=== PATIENT | female | born 1970 | race Caucasian/White ===

== ENCOUNTER 2016-11-20 12:52 | Emergency (ER) | payer MEDICARE, MEDICAID ==
[2016-11-20 13:28] VITALS: BP 152/93
== END 2016-11-20 13:35 | disposition left against medical advice (07) ==
LOC: ED 12:52
DX: R05 Cough (principal)

== ENCOUNTER 2017-05-22 14:21 | Emergency (ER) | payer MEDICARE, MEDICAID ==
[2017-05-22 14:58] VITALS: BP 122/82
== END 2017-05-22 16:02 | disposition left against medical advice (07) ==
LOC: UCEAST 14:21
DX: S99.929A Unspecified injury of unspecified foot, initial encounter (principal); X58.XXXA Exposure to other specified factors, initial encounter; Y93.9 Activity, unspecified; Y92.9 Unspecified place or not applicable; Z53.21 Procedure and treatment not carried out due to patient leaving prior to being seen by health care provider

== ENCOUNTER → 2017-07-10 10:40 | Emergency (ER) | payer MEDICARE, MEDICAID ==
[~2017-07-10 10:40] MED LIST: Gabapentin CAP(*) 300 MG PO ONE; Magnesium Sulfate 2 GM IV* 2 GM/50 ML BAG IVPB ONE; NS 0.9% 1000 ML* 1,000 ML IV ONE; Ondansetron INJ* 2 MG/ML VIAL IV ONE; cloNIDine TAB* 0.1 MG PO ONE; clonazePAM TAB(*) 0.5 MG PO ONE
--- NOTE | 2017-07-10 11:41 | RAD ---
Indication: Weakness. LEFT side chest pain. Comparison: September 18, 2015 Technique: Upright AP 1130 hours Report: No focal pulmonary lesion, compelling alveolar consolidation, pleural effusion, pneumothorax. The heart, pulmonary vasculature, and mediastinal contours are unremarkable. Healed fractures of the bilateral eighth ribs. No acute rib fracture or suspicious focal osseous lesion evident. IMPRESSION: No evidence for acute intrathoracic disease.
[2017-07-10 11:47] LABS: Hematocrit 46 % (35-47); Mean Corpuscular HGB Conc 35 g/dl (31-36); Mean Corpuscular Hemoglobin 31 pg (27-31); Mean Corpuscular Volume 88 fL (80-97); Mean Platelet Volume 7 um3 (7.4-10.4); Red Blood Count 5.21 10^6/ul (4.0-5.4); Red Cell Distribution Width 12 % (10.5-15)
[2017-07-10 12:00] LABS: Albumin 4.4 g/dL (3.2-5.2); Calcium 10.2 mg/dL (8.6-10.3); Globulin 3.1 g/dL (2-4); Magnesium 1.8 mg/dL (1.9-2.7); Potassium 3.9 mmol/L (3.5-5.0); Total Bilirubin 0.9 mg/dL (0.2-1.0); Total Protein 7.5 g/dL (6.4-8.9)
[2017-07-10 12:21] LABS: BUN/Creatinine Ratio 9.2 (8-20); EGFR African American 46.9 (>60); EGFR Non-African American 36.5 (>60)
[2017-07-10 12:30] LABS: TSH (Thyroid Stimulating Horm) 0.88 mcIU/mL (0.34-5.60)
[2017-07-10 13:09] LABS: Urine Bilirubin Negative (Negative); Urine Glucose Negative (Negative); Urine Nitrite Negative (Negative)
--- NOTE | 2017-07-10 14:04 | RAD ---
INDICATION: Feeling tired. Body is tingling COMPARISON: Lateral chest x-ray September 18, 2015; CTA chest August 20, 2017 TECHNIQUE: Noncontrast axial source images was performed from the thoracic inlet to the level the hemidiaphragms. Coronal and and sagittal reformatted images were generated. FINDINGS: Vertebrae: There is no fracture or acute focal bony lesion. There is minor mid thoracic spurring, unchanged. Alignment: There is minor kyphosis, unchanged. Central Canal: There are no significant CT abnormalities of the central canal or foramina. MR imaging is a more sensitive method to evaluate the canal and foramina. Intervertebral disc spaces: The disc spaces are maintained. Soft tissues: There are no paravertebral soft tissue abnormalities. The right thyroid lobe appears enlarged and mildly heterogeneous. Similar findings were present in 2006 IMPRESSION: NO ACUTE CT FINDINGS.
--- NOTE | 2017-07-10 14:08 | RAD ---
INDICATION: LEFT lower quadrant pain. Post cholecystectomy. COMPARISON: August 20, [address] TECHNIQUE: Multidetector CT images were obtained from the lung bases to the ischial tuberosities. Oral contrast administered. Assessment of the visceral limited without IV contrast. REPORT: Unremarkable visualized inferior thorax. Unremarkable unenhanced liver. Post cholecystectomy. Negative for biliary dilatation. Unremarkable unenhanced pancreas and spleen with small splenule at the splenic hilum. Small medially projecting diverticulum from the junction of the second segment of the duodenum without suggestion of acute inflammatory change. No additional abnormality of the upper GI, small bowel, or infra cecal appendix. Mild diverticulosis of the sigmoid colon without findings of diverticulitis. Negative for ascites, free air, hernias. Normal adrenal glands. Unremarkable unenhanced kidneys. No conspicuous stones or hydronephrosis. Unremarkable ureters and distended urinary bladder as well as the RIGHT deviated anteverted uterus and adnexal regions. Negative for lymphadenopathy. Normal diameter abdominal aorta and iliac arteries with mild calcific plaque. Physiologic distention of the IVC. Negative for suspicious osseous lesions. Mild subchondral sclerosis and cystic change at the weightbearing portion of the LEFT greater than RIGHT hips secondary to osteoarthritis. IMPRESSION: 1. Normal appendix documented. 2. Mild colonic diverticulosis without findings of acute diverticulitis. 3. No acute abdominal pelvic pathologic process evident
[2017-07-10 16:16] VITALS: BP 146/85
--- NOTE | 2017-07-10 17:01 | ED ---
Leighton Paul Alfonso, scribed for Sandra Gaming MD on 07/10/17 at 1113 . Complex/Multi-Sys Presentation - HPI Summary HPI Summary: This patient is a 47 year old F presenting to [facility] accompanied by mother with a chief complaint of diffuse body tingling worse since 3 weeks ago. She reports having these symptoms for years. The patient rates the pain 8/10 in severity. Symptoms aggravated by nothing. Symptoms alleviated by nothing. Patient reports tiredness, nausea, constipation, and left sided abdominal pain (lasting years and worse since weeks ago). Patient denies vomiting, and dysuria. She is not on dialysis. PMHx of HTN, neuropathy, bipolar disorder, and kidney disease ( secondary to [place]) for which she sees Dr. Nunes (nephrology). Her PCP is Dr. Jarrett. - History Of Current Complaint Chief Complaint: EDGeneral Time Seen by Provider: 07/10/17 11:03 Hx Obtained From: Patient Onset/Duration: Gradual Onset, Worse Since - 3 weeks Timing: Constant Severity Currently: Moderate Severity Initially: Moderate Location: Pain At: - diffuse body tingling and left sided abd pain. Aggravating Factor(s): Nothing Alleviating Factor(s): Nothing Associated Signs And Symptoms: Positive: Other - Patient reports tiredness, nausea, constipation, and left sided abdominal pain (lasting years and worse since weeks ago). Patient denies vomiting, and dysuria. - Allergies/Home Medications Allergies/Adverse Reactions: Allergies Allergy/AdvReac Type Severity Reaction Status Date / Time No Known Allergies Allergy Verified 07/10/17 10:55 PMH/Surg Hx/FS Hx/Imm Hx Endocrine/Hematology History: Reports: Hx Thyroid Disease Denies: Hx Diabetes Cardiovascular History: Reports: Hx Hypertension Denies: Other Cardiovascular Problems/Disorders Respiratory History: Denies: Hx Asthma, Hx Chronic Obstructive Pulmonary Disease (COPD), Other Respiratory Problems/Disorders GI History: Denies: Hx Ulcer, Other GI Disorders History: Reports: Other Problems/Disorders - Kidney disease. Sensory History: Denies: Hx Contacts or Glasses, Hx Hearing Aid Opthamlomology History: Denies: Hx Contacts or Glasses Neurological History: Reports: Hx Peripheral Neuropathy Denies: Other Neuro Impairments/Disorders Psychiatric History: Reports: Hx Anxiety - ON MEDS, Hx Depression - ON MEDS, Hx Bipolar Disorder - Surgical History Surgery Procedure, Year, and Place: , [facility] [place] Hx Anesthesia Reactions: No Infectious Disease History: Denies: Hx Hepatitis, Hx Human Immunodeficiency Virus (HIV), Traveled Outside the [place] in Last 30 Days - Family History Known Family History: Negative: Cardiac Disease, Diabetes - Social History Lives: Alone Alcohol Use: None Substance Use Type: Reports: None Smoking Status (MU): Light Every Day Tobacco Smoker Type: Cigarettes Amount Used/How Often: 2 cig/day Have You Smoked in the Last Year: Yes Review of Systems Positive: Abdominal Pain - left sided, Nausea, Other - Constipation. Negative: Vomiting Negative: dysuria Neurological: Other - Diffuse body tingling, and tiredness All Other Systems Reviewed And Are Negative: Yes Physical Exam Triage Information Reviewed: Yes Vital Signs On Initial Exam: Initial Vitals Temp Pulse Resp BP Pulse Ox 98 F 68 16 150/103 100 07/10/17 10:50 07/10/17 10:50 07/10/17 10:50 07/10/17 10:50 07/10/17 10:50 Vital Signs Reviewed: Yes Appearance: Positive: Well-Appearing, No Pain Distress Skin: Positive: Skin Color Reflects Adequate Perfusion, Dry Eyes: Positive: EOMI, ERON ENT: Positive: Pharynx normal, TMs normal Neck: Positive: Supple, Nontender Respiratory/Lung Sounds: Positive: Clear to Auscultation, Breath Sounds Present. Negative: Rales, Rhonchi, Wheezes Cardiovascular: Positive: RRR, Other - No gallop. Negative: Murmur, Rub Abdomen Description: Positive: Soft, Other: - LLQ tenderness. No rebound.. Negative: Distended, Guarding Bowel Sounds: Positive: Present Musculoskeletal: Positive: Strength/ROM Intact, Other. Negative: Edema Left, Edema Right Neurological: Positive: Sensory/Motor Intact, Alert, Oriented to Person Place, Time, CN Intact II-III, Other - DTR normal. Sensation in both legs. Sensation decreased in legs bilaterally which is her baseline. Psychiatric: Positive: Affect/Mood Appropriate Diagnostics - Vital Signs Vital Signs Temp Pulse Resp BP Pulse Ox 07/10/17 10:50 98 F 68 16 150/103 100 - Laboratory Lab Results: Lab Results 07/10/17 07/10/17 07/10/17 Range/Units 11:30 11:30 11:30 WBC 6.0 (3.5-10.8) 10^3/ul RBC 5.21 (4.0-5.4) 10^6/ul Hgb 16.0 (12.0-16.0) g/dl Hct 46 (35-47) % MCV 88 (80-97) fL MCH 31 (27-31) pg MCHC 35 (31-36) g/dl RDW 12 (10.5-15) % Plt Count 222 (150-450) 10^3/ul MPV 7 L (7.4-10.4) um3 Neut % (Auto) 58.8 (38-83) % Lymph % (Auto) 32.0 (25-47) % [place] % (Auto) 6.7 (1-9) % Eos % (Auto) 2.0 (0-6) % Baso % (Auto) 0.5 (0-2) % Absolute Neuts (auto) 3.5 (1.5-7.7) 10^3/ul Absolute Lymphs (auto) 1.9 (1.0-4.8) 10^3/ul Absolute Monos (auto) 0.4 (0-0.8) 10^3/ul Absolute Eos (auto) 0.1 (0-0.6) 10^3/ul Absolute Basos (auto) 0 (0-0.2) 10^3/ul Absolute Nucleated RBC 0.01 10^3/ul Nucleated RBC % 0.1 Sodium 138 (133-145) mmol/L Potassium 3.9 (3.5-5.0) mmol/L Chloride 102 (101-111) mmol/L Carbon Dioxide 29 (22-32) mmol/L Anion Gap 7 (2-11) mmol/L BUN 14 (6-24) mg/dL Creatinine 1.52 H (0.51-0.95) mg/dL Est GFR ( Amer) 46.9 (>60) Est GFR (Non-Af Amer) 36.5 (>60) BUN/Creatinine Ratio 9.2 (8-20) Glucose 99 (70-100) mg/dL Lactic Acid 1.0 (0.5-2.0) mmol/L Calcium 10.2 (8.6-10.3) mg/dL Magnesium 1.8 L (1.9-2.7) mg/dL Total Bilirubin 0.90 (0.2-1.0) mg/dL AST 18 (13-39) U/L ALT 23 (7-52) U/L Alkaline Phosphatase 64 (34-104) U/L Total Creatine Kinase 72 (10-223) U/L Troponin I 0.00 (<0.04) ng/mL Total Protein 7.5 (6.4-8.9) g/dL Albumin 4.4 (3.2-5.2) g/dL Globulin 3.1 (2-4) g/dL Albumin/Globulin Ratio 1.4 (1-3) TSH 0.88 (0.34-5.60) mcIU/mL Urine Color Urine Appearance Urine pH (5-9) Ur Specific [place] (1.010-1.030) Urine Protein (Negative) Urine Ketones (Negative) Urine Blood (Negative) Urine Nitrate (Negative) Urine Bilirubin (Negative) Urine Urobilinogen (Negative) Ur Leukocyte Esterase (Negative) Urine Glucose (Negative) 07/10/17 Range/Units 12:55 WBC (3.5-10.8) 10^3/ul RBC (4.0-5.4) 10^6/ul Hgb (12.0-16.0) g/dl Hct (35-47) % MCV (80-97) fL MCH (27-31) pg MCHC (31-36) g/dl RDW (10.5-15) % Plt Count (150-450) 10^3/ul MPV (7.4-10.4) um3 Neut % (Auto) (38-83) % Lymph % (Auto) (25-47) % [place] % (Auto) (1-9) % Eos % (Auto) (0-6) % Baso % (Auto) (0-2) % Absolute Neuts (auto) (1.5-7.7) 10^3/ul Absolute Lymphs (auto) (1.0-4.8) 10^3/ul Absolute Monos (auto) (0-0.8) 10^3/ul Absolute Eos (auto) (0-0.6) 10^3/ul Absolute Basos (auto) (0-0.2) 10^3/ul Absolute Nucleated RBC 10^3/ul Nucleated RBC % Sodium (133-145) mmol/L Potassium (3.5-5.0) mmol/L Chloride (101-111) mmol/L Carbon Dioxide (22-32) mmol/L Anion Gap (2-11) mmol/L BUN (6-24) mg/dL Creatinine (0.51-0.95) mg/dL Est GFR ( Amer) (>60) Est GFR (Non-Af Amer) (>60) BUN/Creatinine Ratio (8-20) Glucose (70-100) mg/dL Lactic Acid (0.5-2.0) mmol/L Calcium (8.6-10.3) mg/dL Magnesium (1.9-2.7) mg/dL Total Bilirubin (0.2-1.0) mg/dL AST (13-39) U/L ALT (7-52) U/L Alkaline Phosphatase (34-104) U/L Total Creatine Kinase (10-223) U/L Troponin I (<0.04) ng/mL Total Protein (6.4-8.9) g/dL Albumin (3.2-5.2) g/dL Globulin (2-4) g/dL Albumin/Globulin Ratio (1-3) TSH (0.34-5.60) mcIU/mL Urine Color Straw Urine Appearance Clear Urine pH 8.0 (5-9) Ur Specific [place] 1.002 L (1.010-1.030) Urine Protein Negative (Negative) Urine Ketones Negative (Negative) Urine Blood Negative (Negative) Urine Nitrate Negative (Negative) Urine Bilirubin Negative (Negative) Urine Urobilinogen Negative (Negative) Ur Leukocyte Esterase Negative (Negative) Urine Glucose Negative (Negative) Result Diagrams: 07/10/17 11:30 07/10/17 11:30 Lab Statement: Any lab studies that have been ordered have been reviewed, and results considered in the medical decision making process. - Radiology CXR Radiology Interpretation Completed By: Radiologist - No evidence for acute intrathoracic disease. ED physician has reviewed this radiology report and agrees. - CT T-Spine CT Interpretation Completed By: Radiologist - NO ACUTE CT FINDINGS. ED physician has reviewed this radiology report and agrees. A/P CT Interpretation Completed By: Radiologist - 1. Normal appendix documented. 2. Mild colonic diverticulosis without findings of acute diverticulitis. 3. No acute abdominal pelvic pathologic process evident. ED physician has reviewed this radiology report and agrees. - EKG 1132 Cardiac Rate: NL - BPM 64 EKG Rhythm: Sinus Rhythm EKG Interpretation: RBBB EKG Comparison: No Significant Change - 08/20/07 RBBB present. Complex Multi-Symp Course/Dx Course Of Treatment: 47 yo female with multiple complaints including long standing abd pain and tingling to her body. her ct did show diverticulosis and she did on exam have llq so pt was started on abx in addition pt described her gabapentin as not working and so she was to titrate slowly up from 900 mg a day to 1800- this was discussed at length with the patient - Diagnoses Provider Diagnoses: Diverticulitis, Neuropathy - Physician Notifications Discussed Care Of Patient With: Vikram Nunes Time Discussed With Above Provider: 15:42 Instructed by Provider To: Other - Consulted Dr. Nunes (automobile repossessor) regarding the patient's condition. Discharge - Discharge Plan Condition: Stable Disposition: HOME Prescriptions: Ciprofloxacin TAB* [Cipro 500 MG TAB*] 500 mg PO BID #14 tab Gabapentin CAP(*) [Neurontin 300 CAP(*)] 600 mg PO TID #30 cap Metronidazole [Flagyl 500 MG TAB] 500 mg PO QID #28 tab Patient Education Materials: Diverticulitis (ED), Peripheral Neuropathy (ED) Referrals: Chris Jarrett MD [Primary Care Provider] - 3 Days The documentation as recorded by the Leighton trinidad Alfonso accurately reflects the service I personally performed and the decisions made by me, Sandra Gaming MD.
== END | disposition home or self-care (01) ==
LOC: ED 10:40
DX: K57.92 Diverticulitis of intestine, part unspecified, without perforation or abscess without bleeding (principal); G62.9 Polyneuropathy, unspecified; R10.9 Unspecified abdominal pain; K59.00 Constipation, unspecified; R11.0 Nausea; F17.210 Nicotine dependence, cigarettes, uncomplicated
CPT/HCPCS: 36415; 71010; 72128; 74176; 80053; 81003; 82550; 83605; 83735; 84443; 84484; 85025; 93005; 96374; 99283; A9270-GY; J2405; J3475

== ENCOUNTER 2018-10-31 06:15 | Emergency (ER) | payer MEDICARE, MEDICAID ==
[2018-10-31] MEDS ORDERED: LORazepam TAB(*) 1 MG PO ONE (07:01)
--- OUTSIDE RECORDS SUMMARY | 2018-10-31 07:03 | XMS REPORT | Continuity of Care Document ---
:1970 External Reference #:[id number] Author Name Shasta Weaver Care Team Providers Name Role Phone Chris Jarrett MD Primary Care Physician Unavailable Payers Type Date Identification Numbers Payment Provider Subscriber Policy Number: [id number] Medicare Laurence Torres PayID: [id number] [address] [place] [address] Policy Number: [id number] Medicaid Laurence Torres Group Name: 1 1 [address] PayID: [id number] [place] [address] Policy Number: [id number] Cont: [facility] Laurence Torres PayID: [id number] Attn Ana Mark [address] [place] [address] Advance Directives Description No Information Available Problems Date Description Provider Status Onset: 11/30/2015 Idiopathic peripheral Tessa Kaba MD Active neuropathy Onset: 01/08/2016 Skin sensation disturbance Tessa Kaba MD Active Onset: 09/11/2017 Low back pain Miguel Peralta M.D. 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[employer] Family History Date Family Member(s) Problem(s) Comments General Cancer Father Arthritis Mother Arthritis Social History Type Date Description Comments Sex Unknown Marital Status Single Lives With Alone Occupation Currently Working Occupation [employer] Tobacco Use Start: Unknown Currently smokes 1-5 Cigarettes Daily Tobacco Use Start: Unknown End: Former Cigarette Smoker Unknown Smoking Status Reviewed: 10/25/18 Former Cigarette Smoker ETOH Use Denies alcohol use Recreational Drug Use Denies Drug Use Tobacco Use Start: Unknown End: Patient is a former Unknown smoker Exercise Type/Frequency Exercises regularly Active at work, at home during summer. Allergies, Adverse Reactions, Alerts Description No Known Drug Allergies Medications Medication Date Status Form Strength Qnty SIG Indications Ordering Provider Baclofen 10/25 Active Tablets 10mg 30tab take one G89.4 s tablet by Katherin, mouth per M.D. day as needed for muscle spasms - avoid driving Hydroxyzine HCL 06/18 Active Tablets 25mg 60tab take one F41.9 Zsofi s tablet by Stew, mouth 2x SHIPPING AND RECEIVING CLERK daily as needed Naltrexone HCL 03/09 Active Powder 15gm 4.5 mg compounded Katherin, in capsules M.D. by mouth every day Multivitamins Active Capsules 1 by mouth Unknown /0000 every day Ziprasidone HCL Active Capsules 80mg 1 po qpm Unknown / Klonopin Active Tablets 0.5mg 1 tab po Unknown / Qid as needed Levothyroxine Active Tablets 75mcg 1 tab po Unknown Sodium qam before breakfast except Thursday Trintellix Active Tablets 20mg daily Unknown / Amlodipine Active Tablets 10mg daily Mamie /0000 , BETH Dorado Bupropion HCL ER 06/18 Hx Tablets ER 150mg 1 by mouth Other (SR) 12HR every day Ordering - Provider 08/24 Gabapentin 06/18 Hx Tablets 600mg 1 by mouth G89.4 ofi three times Stew, - a day SHIPPING AND RECEIVING CLERK 10/25 Tizanidine HCL 02/09 Hx Tablets 2mg 60tab take 2 tabs G89.4 s in the Katherin, - morning and M.D. 08/24 2 tabs in the evening for a total of 4 daily tabs daily ongoing as needed for muscular spasms Tizanidine HCL 02/08 Hx Capsules 4mg 60cap Take one s capsule/tab Katherin, - let by M.DJose Manuel 02/09 mouth twice daily as needed for spasms (cancel the 2mg dose) Tizanidine HCL 02/02 Hx Tablets 2mg 30tab Take one s capsule/tab Katherin, - let by M.DJose Manuel 02/08 mouth twice daily as needed for spasms, avoid with driving Aspercreme 01/05 Hx Patches 4% 90uni apply daily R20.2 Vikram ts to help Katherin, - myofascial M.D. 08/24 pain from fms Lidoderm 12/25 Hx Patches 5% 30uni 1 apply to R20.2 ts affected Katherin, - area 12 M.D. 01/05 hours on, 12 hours off (has not started 01/04/18) Gabapentin 11/30 Hx Capsules 300mg 90cap 2 tabs in s the am, 4 MD Sendy - tabs in the 01/03 afternoon, and 2 tabs in the pm Duloxetine HCL Hx Caps DR 60mg 2 caps po Unknown /0000 Part qhs - 08/12 Topiramate Hx Tablets 50mg 1 by mouth Unknown /0000 twice a day - (currently 12/18 on hold) Buspirone HCL 00/ Hx Tablets 30mg 1 tab po Unknown /0000 bid - 08/12 Pantoprazole / Hx Tablets DR 40mg 1 tab po Unknown Sodium /0000 daily - 11/16 Omeprazole /[address] 20mg 1 tab po Unknown /0000 bid - 08/12 Clonidine HCL 00/00 Hx Tablets 0.1mg 1 tab po Unknown /0000 qam and 1 - tab po q 08/24 and 2 tabs qhs Bupropion HCL ER 00/00 Hx Tablets ER 150mg 1 tab po Unknown (SR) /0000 12HR daily - 11/29 Prempro 00/00 Hx Tablets 0.45-1.5m 1 by mouth Unknown /0000 g every day - 08/12 Chantix 00/00 Hx Tablets 1mg 1 by mouth Unknown /0000 twice a day - 12/19 Aspirin 00/00 Hx Chewtabs 81mg 1 by mouth Unknown /0000 every day - 08/12 Lyrica 00 Hx Capsules 200mg 1 cap po Unknown /0000 tid - 08/12 Doxycycline 00/00 Hx Tablets 100mg Wilder Mosleyate /0000 MD Mateo - 08/12 Bupropion HCL ER 00/00 Hx Tablets ER 300mg daily Unknown (XL) /0000 24HR - 06/18 Metronidazole 00/ Hx Cream 0.75% apply two Unknown /0000 times a day - as needed 01/03 for rash Esomeprazole Hx Capsules DR 40mg 1 by mouth Unknown Magnesium /0000 every day - 10/11 Hyoscyamine Hx Tablets Sub 0.125mg 1 Unknown Sulfate /0000 sublingual - every 15 10/11 min. when necessary for pain Phenergan Hx Solution 25mg/ml Unknown / - 12/25 Sucralfate Hx Tablets 1gm 1 tab by Unknown /0000 mouth 4x a - day 10/11 Tramadol HCL Hx Tablets 50mg 1-2 tablets Unknown / every 6 - hours as 10/11 Budesonide Hx Suspension 0.25mg/2M 1 unit Unknown /0000 L nebulizer - twice a day 10/11 Promethazine HCL Hx Tablets 25mg Unknown / - 01/03 Gabapentin Hx Tablets 600mg 360ta 1 tab by G62.9 Vikram /0000 bs mouth in [facility], - the M.D. 06/18 morning, tabs by mouth in the afternoon, 1 tab in the evening Tramadol HCL ER 00 Hx Tablets ER 100mg 1 tablet by Unknown (Biphasic) /0000 24HR mouth once - a day as 03/09 Cyclobenzaprine Hx Tablets 10mg 1 tablet by Unknown HCL /0000 mouth q8 - hours as 02/02 muscle spasms Tylenol With Hx Tablets 300-30mg 1 tablet by Unknown Codeine #3 /0000 mouth every - 8 hours as 03/09 cough Chantix Hx Tablets 1mg 1 by mouth Unknown Continuing Month / twice a day Leon - 08/24 Immunizations Description No Information Available Vital Signs Date Vital Result Comment 10/25/2018 9:18am Height 64 inches 5'4" Weight 156.25 lb Heart Rate 74 /min BP Systolic Sitting 128 mmHg BP Diastolic Sitting 80 mmHg Pain Level 7 O2 % BldC Oximetry 97 % BMI (Body Mass Index) 26.8 kg/m2 08/24/2018 8:36am Height 64 inches 5'4" Weight 158.38 lb Heart Rate 80 /min BP Systolic Sitting 122 mmHg BP Diastolic Sitting 80 mmHg Pain Level 2 O2 % BldC Oximetry 97 % BMI (Body Mass Index) 27.2 kg/m2 06/18/2018 9:16am Height 64 inches 5'4" Weight 155.12 lb Heart Rate 63 /min BP Systolic Sitting 114 mmHg BP Diastolic Sitting 80 mmHg O2 % BldC Oximetry 98 % BMI (Body Mass Index) 26.6 kg/m2 04/22/2018 9:53am Height 64 inches 5'4" Weight 161.00 lb Heart Rate 68 /min BP Systolic Sitting 112 mmHg BP Diastolic Sitting 70 mmHg Respiratory Rate 14 /min Pain Level 2 BMI (Body Mass Index) 27.6 kg/m2 03/09/2018 8:01am Height 64 inches 5'4" Weight 161.00 lb Heart Rate 60 /min BP Systolic Sitting 110 mmHg BP Diastolic Sitting 74 mmHg Respiratory Rate 14 /min Pain Level 5 BMI (Body Mass Index) 27.6 kg/m2 03/03/2018 9:08am Height 64 inches 5'4" Weight 159.00 lb Heart Rate 66 /min BP Systolic Sitting 116 mmHg Lue reg cuff BP Diastolic Sitting 76 mmHg Lue reg cuff Respiratory Rate 16 /min O2 % BldC Oximetry 97 % On Ra BMI (Body Mass Index) 27.3 kg/m2 01/20/2018 4:43pm Height 64 inches 5'4" Weight 160.00 lb pt. stated Heart Rate 61 /min BP Systolic Sitting 136 mmHg BP Diastolic Sitting 88 mmHg Respiratory Rate 14 /min Pain Level 5 BMI (Body Mass Index) 27.5 kg/m2 01/04/2018 8:42am Height 64 inches 5'4" Weight 163.00 lb per pt Heart Rate 56 /min BP Systolic Sitting 156 mmHg Rue reg cuff BP Diastolic Sitting 100 mmHg Rue reg cuff Respiratory Rate 16 /min O2 % BldC Oximetry 98 % On Ra BMI (Body Mass Index) 28.0 kg/m2 Neck Circumference in inches 15.5 12/25/2017 9:52am Height 64 inches 5'4" Weight 163.00 lb Heart Rate 60 /min BP Systolic Sitting 130 mmHg BP Diastolic Sitting 84 mmHg Respiratory Rate 14 /min Pain Level 7 BMI (Body Mass Index) 28.0 kg/m2 10/12/2017 9:47am Height 64 inches 5'4" Weight 162.00 lb Heart Rate 60 /min BP Systolic 118 mmHg BP Diastolic 80 mmHg Respiratory Rate 14 /min BMI (Body Mass Index) 27.8 kg/m2 09/11/2017 10:18am Height 64 inches 5'4" Weight 160.00 lb per pt Heart Rate 58 /min reg BP Systolic Sitting 118 mmHg Lue, reg cuff BP Diastolic Sitting 84 mmHg Lue, reg cuff Respiratory Rate 16 /min BMI (Body Mass Index) 27.5 kg/m2 01/08/2016 2:05pm Height 64 inches 5'4" Weight 202.00 lb Heart Rate 72 /min BP Systolic Sitting 130 mmHg BP Diastolic Sitting 72 mmHg Respiratory Rate 17 /min BMI (Body Mass Index) 34.7 kg/m2 11/30/2015 11:05am Height 64 inches 5'4" Weight 194.00 lb Heart Rate 68 /min BP Systolic Sitting 136 mmHg BP Diastolic Sitting 82 mmHg Respiratory Rate 16 /min BMI (Body Mass Index) 33.3 kg/m2 Results Test Date Facility Test Result H/L Range Note CBC Auto Diff 08/20/2018 [facility] White Blood 7.1 10^3/uL N 3.5-10.[address] [place] [address] [phone] Red Blood Count 4.57 10^6/uL N 4.00-5.40 Hemoglobin 14.0 g/dL N 12.0-16.0 Hematocrit 41 % N 35-47 Mean Corpuscular Volume 89 fL N 80-97 Mean Corpuscular Hemoglobin 31 pg N 27-31 Mean Corpuscular HGB Conc 34 g/dL N 31-36 Red Cell Distribution Width 12 % N 10.5-15 Platelet Count 211 10^3/uL N 150-450 Mean Platelet Volume 7.8 um3 N 7.4-10.4 Abs Neutrophils 4.7 10^3/uL N 1.5-7.7 Abs Lymphocytes 1.8 10^3/uL N 1.0-4.8 Abs Monocytes 0.5 10^3/uL N 0-0.8 Abs Eosinophils 0.1 10^3/uL N 0-0.6 Abs Basophils 0 10^3/uL N 0-0.2 Abs Nucleated RBC 0 10^3/uL Granulocyte % 65.6 % N 38-83 Lymphocyte % 25.8 % N 25-47 Monocyte % 6.7 % N 0-7 Eosinophil % 1.7 % N 0-6 Basophil % 0.2 % N 0-2 Nucleated Red Blood Cells % 0.3 Comp Metabolic Panel 08/20/2018 [facility] Sodium 142 mmol/L N 135-[address] [place] [address] [phone] Potassium 3.8 mmol/L N 3.5-5.0 Chloride 109 mmol/L N 101-111 Co2 Carbon Dioxide 26 mmol/L N 22-32 Anion Gap 7 mmol/L N 2-11 Glucose 84 mg/dL N 70-100 Blood Urea Nitrogen 18 mg/dL N 6-24 Creatinine 1.08 mg/dL High 0.51-0.95 BUN/Creatinine Ratio 16.7 N 8-20 Calcium 9.3 mg/dL N 8.6-10.3 Total Protein 6.6 g/dL N 6.4-8.9 Albumin 4.3 g/dL N 3.2-5.2 Globulin 2.3 g/dL N 2-4 Albumin/Globulin Ratio 1.9 N 1-3 Total Bilirubin 0.50 mg/dL N 0.2-1.0 Alkaline Phosphatase 87 U/L N 34-104 Alt 18 U/L N 7-52 Ast 21 U/L N 13-39 Egfr Non- 53.9 >60 Egfr 65.2 >60 1 Laboratory test 08/20/2018 [facility] Erythrocyte Sed 17 mm/Hr High 0-[address] [place] [address] [phone] C Reactive Protein 1.72 mg/L N <8.01 Creatine Kinase(CK) 198 U/L N 10-223 Laboratory test 04/13/2018 [facility] Erythrocyte Sed 14 mm/Hr N 0-14 [address] [place] [address] [phone] C Reactive Protein < 1.00 mg/L N < 5.00 3 Anca AB Ser If 12/25/2017 [facility] C-Anca Negative Negative [address] [place] [address] [phone] P-Anca Negative Negative 4 Laboratory test 12/25/2017 [facility] Angiotensin 60 U/L Abnormal 8 - 53 [address] [place] [address] Enzyme [phone] Rheumatoid Factor <15 IU/mL <15 6 C Reactive Protein 2.79 mg/L N < 5.00 7 Erythrocyte Sed Rate 27 mm/Hr High 0-14 Cyclic Citrullinated Pep Igg <15.6 U 8 Vitamin D, 1,25 Dihydroxy TNP () 9 TSH (Thyroid Stim Horm) 1.37 mcIU/mL N 0.34-5.60 Hla B27 12/25/2017 [facility] Hla B27 Positive [address] [place] [address] [phone] Hla B27 Interp See Comment 11 Celiac Hla 12/25/2017 [facility] [id number] SEE BELOW [address] [place] [address] [phone] [id number] SEE BELOW 13 Celiac Gene Pairs Present? No Celiac Gene Interpretation See Comment 14 Ssa/SSB Abs Igg 11/30/2015 [facility] SS-A/Ro Antibody <0.2 U N [address] [place] [address] [phone] SS-B/La Antibody <0.2 U N 16 Protein 11/30/2015 [facility] Total 6.8 g/dL N 6.3 - Electrophoresis [address] [facility] Protein(Pep) 7.9 [place] [address] [phone] Albumin 3.4 g/dL N 3.4-4.7 Alpha-1 Globulin 0.3 g/dL N 0.1-0.3 Alpha-2 Globulin 0.9 g/dL N 0.6-1.0 Beta Globulin 1.0 g/dL N 0.7-1.2 Gamma Globulin 1.1 g/dL N 0.6-1.6 Albumin/Globulin Ratio 1.01 N Impression See Comment N 17 Laboratory test 11/30/2015 [facility] Nakia (Antinuclear Negative N Negative finding [address] Antibodies) [place] [address] [phone] Erythrocyte Sed Rate 25 mm/Hr High 0-14 1 Because ethnic data is not always readily available, this report includes an eGFR for both -Americans and non- Americans. The National Kidney Disease Education Program (NKDEP) does not endorse the use of the MDRD equation for patients that are not between the ages of 18 and 70, are , have extremes of body size, muscle mass, or nutritional status, or are non- or non-. According to the National Kidney Foundation, irrespective of diagnosis, the stage of the disease is based on the level of kidney function: Stage Description GFR(mL/min/1.73 m(2)) 1 Kidney damage with normal or decreased GFR 90 2 Kidney damage with mild decrease in GFR 60-89 3 Moderate decrease in GFR 30-59 4 Severe decrease in GFR 15-29 5 Kidney failure <15 (or dialysis) 2 Please check labs 2 days before follow up 3 Acute inflammation: >10.00 4 Negative for cANCA and pANCA patterns by immunofluorescence. ADDITIONAL INFORMATION This test was developed and its performance characteristics determined by [facility] in a manner consistent with CLIA requirements. This test has not been cleared or approved by the U.S. Food and Drug Administration. Test Performed by: [place] [address] 5 Test Performed by: [place] [address] 6 Test Performed by: [address] [address] 7 Acute inflammation: >10.00 8 REFERENCE VALUE <20.0 (Negative) Test Performed by: [address] [address] 9 1,25-Dihydroxyvitamin D, S was cancelled on 01/01/2018 at 10:58; Quantity is not sufficient to repeat testing. Test Performed by: [facility] [address] [place] [address] 10 REFERENCE VALUE Not Applicable 11 HLA-B27 antigen was detected. Approximately 8% of the normal population carries the HLA-B27 antigen. HLA-B27 is present in approximately 89% of patients with ankylosing spondylitis, 79% of patients with Ca's syndrome and 42% of patients with juvenile rheumatoid arthritis. However, lacking other data, it is not diagnostic for these disorders. This test does not differentiate B27 alleles. i.e. B*27:05, B*27:06, etc. ADDITIONAL INFORMATION Method: Flow Cytometry Performing Laboratory CLIA# [id number] Test Performed by: [facility] - [address] [address] 12 RESULT: 01,01:02 REFERENCE VALUE Not Applicable 13 RESULT: 05:01,06:04 DQ Serologic Equivalent: 5,6 REFERENCE VALUE Not Applicable 14 The absence of HLA celiac permissive genes would make the presence of celiac disease unlikely. ADDITIONAL INFORMATION Method: Molecular typing of HLA antigens performed using reverse SSOP and/or SSP methods, reported as serological equivalents and low to medium resolution molecular values. Performing Laboratory CLIA# [id number] Test Performed by: [facility] - [address] [address] 15 REFERENCE VALUE <1.0 (Negative) 16 REFERENCE VALUE <1.0 (Negative) Test Performed by: [address] [address] Linen Controller: Nic Damico II, M.D., Ph.D. 17 RESULT: No apparent monoclonal protein on serum electrophoresis. Test Performed by: [address] [address] Linen Controller: Nic Damico II, M.D., Ph.D. Procedures Date Code Description Status 01/17/2018 59433 Polysomnography Sleep Staging 4+ Parameters Completed 03/28/2014 12380 Nerve Conduction - Studies Completed 03/28/2014 71179 Needle Electromyography Each Extremity W/Related Completed Paraspinal Areas 05/17/2010 52120 Treadmill Interp/Report Only Completed 05/17/2010 96391 Stress Test Supervsn W/Out I/R Completed 05/06/2010 41041 Stress ECHO Interpretation/Report Hospital Completed 05/06/2010 57937 Treadmill Interp/Report Only Completed 05/06/2010 02665 Stress Test Supervsn W/Out I/R Completed Encounters Type Date Location Provider Dx Diagnosis Office Visit 08/24/2018 Rheumatology Baldomero Mathias, G89.4 Chronic pain 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 R76.8 Other specified abnormal immunological findings in serum F31.9 Bipolar disorder, unspecified Office Visit 06/18/2018 9:30a Rheumatology Maheshofia F31.9 Bipolar disorder, Services Of [employer] Teacher Stew, [employer]IPPING AND RECEIVING CLERK unspecified F41.9 Anxiety disorder, unspecified R76.8 Other specified abnormal immunological findings in serum G89.4 Chronic pain syndrome G62.9 Polyneuropathy, unspecified F17.210 Nicotine dependence, cigarettes, uncomplicated Office Visit 04/22/2018 9:20a Rheumatology Services Vikram Pandey M54.5 Low back Of [employer] Teacher M.D. 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, site unspecified Office Visit 01/04/2018 Pulmonology And Francesca G47.33 Obstructive sleep 9:00a Sleep Services Of ANGELA Aranda, RN, apnea (adult) [facility] MIGUELANGEL-JOSE (pediatric) Office Visit 12/25/2017 Rheumatology Vikram Pandey, R20.2 Paresthesia of 10:00a Services Of [facility] Steiner skin M54.5 Low back pain M54.6 Pain in thoracic spine R70.0 Elevated erythrocyte sedimentation rate G62.9 Polyneuropathy, unspecified Office Visit 10/12/2017 Bradly Peralta R20.2 Paresthesia of 10:15a Neurologic Obdulia skin [facility] M54.5 Low back pain Office Visit 09/11/2017 [place] Peralta R20.2 Paresthesia of 10:30a Neurologic M.D. 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 794.31 Electrocardiogram Visit 9:00a Cardiology Obdulia Cody (ECG) (EKG) Abnormal 786.50 Pain Chest Unspec 719.7 Difficulty Walking Plan of Treatment Future Appointment(s):04/25/2019 8:40 am - Vikram Pandey M.D. at Rheumatology [facility]10/25/2018 - Vikram Pandey M.D.G89.4 Chronic pain syndromeNew Medication:Baclofen 10 mg - take one tablet by mouth per day as needed for muscle spasms - avoid ayfpnliX46.9 Polyneuropathy, unspecifiedComments:As gabapentin is not helping, decrease gabapentin to 2 per day for 1 week then 1 per day for 1 week and then stop and then you may try Baclofen which I sent in to your asgxhwakM82.5 Low back painR70.0 Elevated erythrocyte sedimentation rate
--- NOTE | 2018-10-31 07:15 | ED ---
Hypertension - HPI Summary HPI Summary: Patient presents with multiple symptoms however after lengthy conversation she is here in the emergency department today for abrupt onset headache, elevated blood pressure and change in vision earlier today. She reports her vision is improving since here however she continues to have a headache and elevated blood pressure. She typically takes amlodipine 10 mg daily for her blood pressure and has not changed her dose or missed a medication recently - BP is typically 130's systolic per pt. She also denies taking/using any stimulants, eating more salt than usual, weight gain, etc. 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 Changes in recent meds include a reduction of her gabapentin with transition to baclofen which is a new medication for her. She reports feeling tired and weak all over since starting this. She has also been taking Chantix for about 8 days and reports she feels "sick", "like I'm still smoking" even though she has not smoked in the past few days. Reports she took this in the past and does not report h/o difficulty. Additionally, she reports she drinks 4 -5+ cups of coffee a day "because it makes my body feel better". Denies illicit drug use and ETOH consumption of any amount. Reports a history of intermittent left-sided chest pain over past many months which she's had worked up through her PCP's office and has an appointment with cardiology for further assessment - they want to do a test, but are concerned it may harm her kidneys? She also has hyperlipidemia but has not been started on medication at this time. She was taking an aspirin daily however her provider told her to stop taking this and so she has. Denies history of MD, stroke. She also reports a history of fibromyalgia and was recently seen by her executive sous chef to set her inflammatory markers look normal. Furthermore, she reports a history of renal failure. "My kidneys work at 71%". Has had left flank pain for months. This is been assessed by Dr. Gonzalez who reports there is "nothing wrong" per patient. She denies urinary symptoms. She reports her kidney failure was the result of taking lithium - since stopping , her kidney function has improved. Was also told to quit smoking to help her renal function. She admits she's been smoking since her late teens and quit only recently for a short period then restarted. H/o PE - sx today do not feel same. - History of Current Complaint Chief Complaint: EDHypertension Stated Complaint: HIGH BLOOD PRESSURE Time Seen by Provider: 10/31/18 06:29 Hx Obtained From: Patient Hx Last Menstrual Period: 03/2017- End march - Allergies/Home Medications Allergies/Adverse Reactions: Allergies Allergy/AdvReac Type Severity Reaction Status Date / Time No Known Allergies Allergy Verified 10/31/18 06:50 Home Medications: Home Medications Baclofen 10 mg PO BEDTIME 10/31/18 [History Confirmed 10/31/18] Gabapentin CAP(*) [Neurontin 300 CAP(*)] 600 mg PO BID 10/31/18 [History Confirmed 10/31/18] Vortioxetine (NF) [Trintellix (NF)] 20 mg PO DAILY 10/31/18 [History Confirmed 10/31/18] amLODIPine TAB* [Norvasc 5 mg TAB*] 10 mg PO DAILY 10/31/18 [History Confirmed 10/31/18] PMH/Surg Hx/FS Hx/Imm Hx Previously Healthy: No - chronic issues Endocrine/Hematology History: Reports: Hx Thyroid Disease - take synthroid - follows w/ PCP Denies: Hx Anticoagulant Therapy, Hx Blood Disorders, Hx Diabetes, Hx Unexplained Bleeding Cardiovascular History: Reports: Hx Hypercholesterolemia - untreated - pending cardiology appt, Hx Hypertension - on amlodipine only, Other Cardiovascular Problems/Disorders - murmur Denies: Hx Aneurysm, Hx Myocardial Infarction, Hx Pacemaker/ICD Respiratory History: Reports: Hx Pulmonary Embolism - no residual issues Denies: Hx Asthma, Hx Chronic Obstructive Pulmonary Disease (COPD), Other Respiratory Problems/Disorders GI History: Denies: Hx Ulcer, Other GI Disorders History: Reports: Hx Renal Disease - 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 Negative: Photophobia, Diplopia , Drainage, Erythema ENT: Negative Positive: Chest Pain - Lt side x months - intermittent, not new Respiratory: Negative Negative: Shortness Of Breath, Cough Gastrointestinal: Negative Positive: flank pain - Lt - chronic, not new Musculoskeletal: Other - "my whole body hurts" Skin: Negative Neurological: Other - "my whole body is numb" Positive: Paresthesia - B/L feet Positive: Anxious All Other Systems Reviewed And Are Negative: Yes Physical Exam Triage Information Reviewed: Yes Vital Signs On Initial Exam: Initial Vitals Temp Pulse Resp BP Pulse Ox 98.3 F 74 16 168/97 98 10/31/18 06:22 10/31/18 06:22 10/31/18 06:22 10/31/18 06:22 10/31/18 06:22 Vital Signs Reviewed: Yes Appearance: Positive: Well-Nourished, Pain Distress - appears manic - hyperverbal, anxious, tangential thinking Skin: Positive: Warm, Skin Color Reflects Adequate Perfusion, Dry Head/Face: Positive: Normal Head/Face Inspection Eyes: Positive: Normal, EOMI, ERON, Conjunctiva Clear, Other: - no exophthalmos ; full vision in all 4 visual fisher B/L ENT: Positive: Normal ENT inspection, Hearing grossly normal, Pharynx normal - mucosa moist Neck: Positive: Supple, Nontender - no gross thyromegaly Respiratory/Lung Sounds: Positive: Clear to Auscultation, Breath Sounds Present. Negative: Rales, Rhonchi, Stridor, Tracheal Deviation, Wheezes, Unable to speak in full sentences, Fatigue Cardiovascular: Positive: RRR, Pulses are Symmetrical in both Upper and Lower Extremities, Murmur, S1, S2. Negative: Leg Edema Left, Leg Edema Right - (-) Julien's B/L Abdomen Description: Positive: Nontender, No Organomegaly, Soft Bowel Sounds: Positive: Present Musculoskeletal: Positive: Normal, Strength/ROM Intact Neurological: Positive: Alert, Oriented to Person Place, Time, CN Intact II-III Psychiatric: Positive: Anxious - as above - good eye contact, no SI/HI Diagnostics - Vital Signs Vital Signs Temp Pulse Resp BP Pulse Ox 10/31/18 06:22 98.3 F 74 16 168/97 98 - Laboratory Result Diagrams: 10/31/18 07:09 10/31/18 07:09 Lab Statement: Any lab studies that have been ordered have been reviewed, and results considered in the medical decision making process. Re-Evaluation - Re-Evaluation First Eval Change: Improved Hypertension Course/Dx - Course Course Of Treatment: BP 160's/100's - improved to 140's/90's with ativan - pt also reports ROD, body tingling/numbness improved with this medication. Labs: * mag 1.8 - although minimally depleted, provided replacement however this may be maintained through nutrition at home - pt aware. *TSH is slightly low however FT4is WNL - she does not take her synthroid 2 days a week (today is one of them) - will call PCP tomorrow to discuss if she needs to make further adjustments. Other labs reveal slight improvement in renal function and normal otherwise including but not limited to CBC, CMP, troponin, cortisol. ECG: NSR, no ST elevations, no blocks. CXR: no acute findings. Given pt's level of anxiety and improvement with ativan, will provide short course for today and advised close f/u for tomorrow with PCP. Will not adjust BP meds today as her BP reduced with stress reduction. Also discussed possible need to change BP med given recent recall - she will check with her pharmacist today and PCP tomorrow re: need for change. Discussed w/ Dr. Johnson - no further w/u or tx necessary today - Diagnoses Provider Diagnoses: Hypertension, Anxiety, Abnormal TSH Discharge - Sign-Out/Discharge Documenting (check all that apply): Patient Departure - Discharge Plan Condition: Stable Disposition: HOME Prescriptions: LORazepam TAB(*) [Ativan 1 MG TAB (*)] 1 mg PO BEDTIME PRN #1 tab MDD 1 PRN Reason: Anxiety Patient Education Materials: Hypertension (ED), Anxiety (ED) Forms: *Work Release Referrals: Chris Jarrett MD [Medical Doctor] - Additional Instructions: The definitive cause of her increased blood pressure was not identified today however we have a high clinical suspicion that your recent stress of changing multiple medications (reducing gabapentin, starting baclofen and quitting smoking), the pain this has induced and most likely withdrawal from nicotine are causing added stress on your body. Stress can increase your blood pressure. You were provided with a dose of Ativan today which seemed to help not only her symptoms but all share blood pressure. He will be given a short course to take tonight as needed as well as tomorrow however close follow-up with her PCP as advised. Please call tomorrow to discuss the following: *Your elevated blood pressure today despite taking amlodipine - what can you do for better control? *Amlodipine, your blood pressure medication, was recently recalled for cancer causing impurities. It is important that you call your pharmacist and discuss with your PCP to see if your medication needs to be stopped and/or changed as a result of this findings *Your TSH (a thyroid lab level) is slightly low today however your Free T4 ( another thyroid leve) is normal. Please check with your PCP to see if your sythroid (levothyroxine) dose needs to be adjusted. *Possibly stopping your baclofen as you are reporting overall weakness and fatigue which can be a side effect of this medication. If in the meantime you develop worsening of symptoms, chest pain, difficulty breathing or swallowing, change in vision, severe headache, return to the ED - Billing Disposition and Condition Condition: STABLE Disposition: Home
[2018-10-31 07:22] LABS: ABS Basophils 0 10^3/ul (0-0.2); ABS Eosinophils 0.1 10^3/ul (0-0.6); ABS Lymphocytes 1.7 10^3/ul (1.0-4.8); ABS Monocytes 0.4 10^3/ul (0-0.8); ABS Nucleated RBC 0 10^3/ul; Eosinophil % 1.4 %; Hematocrit 41 % (35-47); Hemoglobin 14.4 g/dl (12.0-16.0); Lymphocyte % 26.7 %; Mean Corpuscular HGB Conc 35 g/dl (31-36); Mean Corpuscular Hemoglobin 31 pg (27-31); Mean Corpuscular Volume 88 fL (80-97); Mean Platelet Volume 7.6 fL (7.4-10.4); Nucleated Red Blood Cells % 0; Platelet Count 183 10^3/ul (150-450); Red Blood Count 4.71 10^6/ul (4.00-5.40); Red Cell Distribution Width 13 % (10.5-15); White Blood Count 6.2 10^3/ul (3.5-10.8)
[2018-10-31 07:32] LABS: INR 0.92 (0.77-1.02)
[2018-10-31 07:41] LABS: EGFR Non-African American 55.7 (>60)
[2018-10-31] MEDS ORDERED: Magnesium Oxide TAB* 400 MG PO ONE (08:15)
[2018-10-31 08:27] LABS: Urine Appearance Clear; Urine Blood Negative (Negative); Urine Color Straw; Urine Ketones Negative (Negative); Urine Protein Negative (Negative); Urine Specific Gravity 1.001 (1.010-1.030); Urine Urobilinogen Negative (Negative)
[2018-10-31 11:45] VITALS: BP 136/91
== END 2018-10-31 11:45 | disposition home or self-care (01) ==
LOC: ED 06:15
DX: I10 Essential (primary) hypertension (principal); F41.9 Anxiety disorder, unspecified; R94.6 Abnormal results of thyroid function studies; I45.10 Unspecified right bundle-branch block; E07.9 Disorder of thyroid, unspecified
CPT/HCPCS: 36415; 71045; 80053; 80307; 80320; 81003; 82533; 83735; 84439; 84443; 84484; 85025; 85610; 85730; 93005; 99283; A9270-GY; G0480

== ENCOUNTER → 2018-12-09 12:23 | Emergency (ER) | payer MEDICARE, MEDICAID ==
[2018-12-09 12:28] VITALS: BP 140/89
--- OUTSIDE RECORDS SUMMARY | 2018-12-09 12:36 | XMS REPORT | Continuity of Care Document ---
:1970 External Reference #:[id number] Author Name Shasta Weaver Care Team Providers Name Role Phone Chris Jarrett MD Primary Care Physician Unavailable Payers Type Date Identification Numbers Payment Provider Subscriber Policy Number: [id number] Medicare Laurence Torres PayID: [id number] [address] [place] [address] Policy Number: [id number] Medicaid Laurence Torres Group Name: 1 1 [address] PayID: [id number] [place] [address] Policy Number: [id number] Cont: [facility] Laurence Torres PayID: [id number] Attn Ana Mark [address] [place] [address] Advance Directives Description No Information Available Problems Date Description Provider Status Onset: 11/30/2015 Idiopathic peripheral Tessa Kaba MD Active neuropathy Onset: 01/08/2016 Skin sensation disturbance Tessa Kaba MD Active Onset: 09/11/2017 Low back pain Miguel Peralta M.D. 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[employer] Family History Date Family Member(s) Problem(s) Comments General Cancer Father Arthritis Mother Arthritis Social History Type Date Description Comments Sex Unknown Marital Status Single Lives With Alone Occupation Currently Working Occupation [employer] Tobacco Use Start: Unknown Currently smokes 1-5 Cigarettes Daily Tobacco Use Start: Unknown End: Former Cigarette Smoker Unknown Smoking Status Reviewed: 11/30/18 Former Cigarette Smoker ETOH Use Denies alcohol [...] needed for muscle spasms - avoid driving Voltaren 10/25 Active Gel 1% 200un apply 2 its grams twice Katherin, daily as M.D. needed for pain to the feet Hydroxyzine HCL 06/18 Active Tablets 25mg 60tab take one F41.9 ofi s tablet by Stew, mouth 2x STEEL CHECKER daily as needed Multivitamins 00 Active Capsules 1 by mouth Unknown /0000 every day Ziprasidone HCL Active Capsules 80mg 1 po qpm F31.9 Unknown /0000 Klonopin Active Tablets 0.5mg 1 tab po Unknown /0000 Qid as needed Levothyroxine Active Tablets 75mcg 1 tab po Unknown Sodium /0000 qam before breakfast except Thursday Trintellix Active Tablets 20mg daily F31.9 Unknown /0000 Amlodipine Active Tablets 10mg daily Mamie /0000 , BETH Dorado Losartan Active Tablets 100mg 1 by mouth Unknown Potassium /0000 every day Bupropion HCL ER 06/18 Hx Tablets ER 150mg 1 by mouth Other (SR) 12HR every day Ordering - Provider 08/24 Gabapentin 06/18 Hx Tablets 600mg 1 by mouth G89.4 three times Stew, - a day STEEL CHECKER 11/30 Naltrexone HCL 03/09 Hx Powder 15gm 4.5 mg compounded Katherin, - in capsules M.D. 11/19 by mouth every day Tizanidine HCL 02/09 Hx Tablets 2mg 60tab take 2 tabs G89.4 s in the Katherin, - morning and M.D. 08/24 2 tabs in the evening for a total of 4 daily tabs daily ongoing as needed for muscular spasms Tizanidine HCL 02/08 Hx Capsules 4mg 60cap Take one s capsule/tab Katherin, - let by M.D. 02/09 mouth twice daily as needed for spasms (cancel the 2mg dose) Tizanidine HCL 02/02 Hx Tablets 2mg 30tab Take one s capsule/tab Katherin, - let by M.D. 02/08 mouth twice daily as needed for spasms, avoid with driving Aspercreme 01/05 Hx Patches 4% 90uni apply daily R20.2 ts to help Katherin, - myofascial M.D. [...] - (currently 12/18 on hold) Buspirone HCL 0000 Hx Tablets 30mg 1 tab po Unknown /0000 bid - 08/[address] 40mg 1 tab po Unknown Sodium /0000 daily - 11/[address] 20mg 1 tab po Unknown /0000 bid - 08/12 Clonidine HCL 00 Hx Tablets 0.1mg 1 tab po Unknown /0000 qam and 1 - tab po q 08/24 and 2 tabs qhs Bupropion HCL ER 00/00 Hx Tablets ER 150mg 1 tab po Unknown (SR) /0000 12HR daily - 11/29 Prempro 00/00 Hx Tablets 0.45-1.5m 1 by mouth Unknown /0000 g every day - 08/12 Chantix 0000 Hx Tablets 1mg 1 by mouth Unknown /0000 twice a day - 12/19 Aspirin / Hx Chewtabs 81mg 1 by mouth Unknown /0000 every day - 08/12 Lyrica Hx Capsules 200mg 1 cap po Unknown /0000 tid - 08/12 Doxycycline Hx Tablets 100mg Kuldeep Mosley /0000 MD Mateo - 08/12 Bupropion HCL ER 00 Hx Tablets ER 300mg daily Unknown (XL) /0000 24HR - 06/18 Metronidazole / Hx Cream 0.75% apply two Unknown /0000 times a day - as needed 01/03 for rash Esomeprazole Hx Capsules DR 40mg 1 by mouth Unknown Magnesium /0000 every day - 10/11 Hyoscyamine Hx Tablets Sub 0.125mg 1 Unknown Sulfate /0000 sublingual - every 15 10/11 min. necessary for pain Phenergan Hx Solution 25mg/ml Unknown /0000 - 12/25 Sucralfate Hx Tablets 1gm 1 tab by Unknown /0000 mouth 4x a - day 10/11 Tramadol HCL Hx Tablets 50mg 1-2 tablets Unknown /0000 every 6 - hours as 10/11 Budesonide Hx Suspension 0.25mg/2M 1 unit Unknown /0000 L nebulizer - twice a day 10/11 Promethazine HCL Hx Tablets 25mg Unknown /0000 - 01/03 Gabapentin Hx Tablets 600mg 360ta 1 tab by G62.9 Vikram /0000 bs mouth in [facility], - the M.D. 06/18 morning, tabs by mouth in the afternoon, 1 tab in the evening Tramadol HCL ER 0000 Hx Tablets ER 100mg 1 tablet by Unknown (Biphasic) /0000 24HR mouth once - a day as 03/09 Cyclobenzaprine 00 Hx Tablets 10mg 1 tablet by Unknown HCL /0000 mouth q8 - hours as 02/02 muscle spasms Tylenol With 00 Hx Tablets 300-30mg 1 tablet by Unknown Codeine #3 /0000 mouth every - 8 hours as 03/09 cough Chantix Hx Tablets 1mg 1 by mouth Unknown Continuing Month / twice a day Leon - 08/24 Medications Administered in Office Medication Date Status Form Strength Qnty SIG Indications Ordering Provider PPD Administered Injection Yoel Jones MD Immunizations CPT Code Status Date Vaccine Lot # [id number] Given 08/30/2018 Measles Mumps And Rubella MMR Vital Signs Date Vital Result Comment 11/30/2018 9:21am Height 64 inches 5'4" Weight 160.50 lb Heart Rate 70 /min BP Systolic Sitting 134 mmHg BP Diastolic Sitting 82 mmHg O2 % BldC Oximetry 98 % BMI (Body Mass Index) 27.5 kg/m2 10/25/2018 9:18am Height 64 inches 5'4" Weight [...] Date Facility Test Result H/L Range Note Laboratory test 10/25/2018 [facility] Erythrocyte Sed 13 mm/Hr N 0-[address] [place] [address] [phone] C Reactive Protein 1.71 mg/L N <8.01 Free T4 (Free Thyroxine) 1.10 ng/dL N 0.61-1.12 CBC Auto Diff 08/20/2018 [facility] White Blood 7.1 10^3/uL N 3.5-10.[address] [place] [address] [phone] Red Blood Count 4.57 10^6/uL N 4.00-5.40 [...] Cells % 0.3 Comp Metabolic Panel 08/20/2018 [facility] Sodium 142 mmol/L N 135-[address] [place] [address] [phone] Potassium 3.8 mmol/L N 3.5-5.0 Chloride 109 [...] Egfr 65.2 >60 1 Laboratory test 08/20/2018 [facility] Erythrocyte Sed 17 mm/Hr High 0-[address] [place] [address] [phone] C Reactive Protein 1.72 mg/L N <8.01 Creatine Kinase(CK) 198 U/L N 10-223 Laboratory test 04/13/2018 [facility] Erythrocyte Sed 14 mm/Hr N 0-14 [address] [place] [address] [phone] C Reactive Protein < 1.00 mg/L N < 5.00 3 Anca AB Ser If 12/25/2017 [facility] C-Anca Negative Negative [address] [place], [place] [id number] [phone] P-Anca Negative Negative 4 Laboratory test 12/25/2017 [facility] Angiotensin 60 U/L Abnormal 8 - 53 [address] [place] [address] Enzyme [phone] Rheumatoid Factor <15 IU/mL <15 6 C Reactive Protein 2.79 mg/L N < 5.00 7 Erythrocyte Sed Rate 27 mm/Hr High 0-14 Cyclic Citrullinated Pep Igg <15.6 U 8 Vitamin D, 1,25 Dihydroxy TNP () 9 TSH (Thyroid Stim Horm) 1.37 mcIU/mL N 0.34-5.60 Hla B27 12/25/2017 [facility] Hla B27 Positive [address] [place], [place] [address] [phone] Hla B27 Interp See Comment 11 Celiac Hla 12/25/2017 [facility] Hla-Dqa1 SEE BELOW [address] [place] [address] [phone] Hla-DQB1 SEE BELOW 13 Celiac Gene Pairs Present? No Celiac Gene Interpretation See Comment 14 Ssa/SSB Abs Igg 11/30/2015 [facility] SS-A/Ro Antibody <0.2 U N [address] [place] [address] [phone] SS-B/La Antibody <0.2 U N 16 Protein 11/30/2015 [facility] Total 6.8 g/dL N 6.3 - Electrophoresis [address] Protein(Pep) 7.9 [place] [address] [phone] Albumin 3.4 g/dL N 3.4-4.7 Alpha-1 Globulin 0.3 g/dL N 0.1-0.3 Alpha-2 Globulin 0.9 g/dL N 0.6-1.0 Beta Globulin 1.0 g/dL N 0.7-1.2 Gamma Globulin 1.1 g/dL N 0.6-1.6 Albumin/Globulin Ratio 1.01 N Impression See Comment N 17 Laboratory test 11/30/2015 [facility] Nakia (Antinuclear Negative N Negative finding [address] Antibodies) [place] [address] [phone] Erythrocyte Sed Rate 25 mm/Hr High 0-14 [...] developed and its performance characteristics determined by [facility] in a manner consistent with CLIA requirements. This test has not been cleared or approved by the U.S. Food and Drug Administration. Test Performed by: [address] [address] 5 Test Performed by: [facility] [address] [place] [address] 6 Test Performed by: [facility] [address] [place] [address] 7 Acute inflammation: >10.00 8 REFERENCE VALUE <20.0 (Negative) Test Performed by: [facility] [address] [place] [address] 9 1,25-Dihydroxyvitamin D, S was cancelled on 01/01/2018 at 10:58; Quantity is not sufficient to repeat testing. Test Performed by: [facility] [address] [place] [address] 10 REFERENCE VALUE Not Applicable 11 HLA-B27 [...] INFORMATION Method: Flow Cytometry Performing Laboratory CLIA# [id number] Test Performed by: [facility] [address] [place] [address] 12 RESULT: 01,01:02 REFERENCE VALUE Not Applicable 13 RESULT: 05:01,06:04 DQ Serologic Equivalent: 5,6 REFERENCE VALUE Not Applicable 14 The absence of HLA celiac permissive genes would make the presence of celiac disease unlikely. ADDITIONAL INFORMATION Method: Molecular typing of HLA antigens performed using reverse SSOP and/or SSP methods, reported as serological equivalents and low to medium resolution molecular values. Performing Laboratory CLIA# [id number] Test Performed by: [place] [address] 15 REFERENCE VALUE <1.0 (Negative) 16 REFERENCE VALUE <1.0 (Negative) Test Performed by: [facility] [place] [address] Hose Operator: Nic Damico II, M.D., Ph.D. 17 RESULT: No apparent monoclonal protein on serum electrophoresis. Test Performed by: [facility] [place] [address] Hose Operator: Nic Damico II, M.D., Ph.D. Procedures Date Code Description Status 01/17/2018 91101 Polysomnography Sleep Staging 4+ Parameters Completed 03/28/2014 69935 Nerve Conduction 03-04 Studies Completed 03/28/2014 97859 Needle Electromyography Each Extremity W/Related Completed Paraspinal Areas 05/17/2010 93203 Treadmill Interp/Report Only Completed 05/17/2010 74113 Stress Test Supervsn W/Out I/R Completed 05/06/2010 48907 Stress ECHO Interpretation/Report Hospital Completed 05/06/2010 90243 Treadmill Interp/Report Only Completed 05/06/2010 07336 Stress Test Supervsn W/Out I/R Completed Encounters Type Date Location Provider Dx Diagnosis Office Visit 10/25/2018 Rheumatology Vikram Pandey G89.4 Chronic pain 9:20a Services Of Emergency Worker M.D. syndrome G62.9 Polyneuropathy, unspecified M54.5 Low back pain R70.0 Elevated erythrocyte sedimentation rate Office Visit 08/24/2018 8:30a Rheumatology Baldomero Mathias, G89.4 Chronic pain [facility] STEEL CHECKER syndrome R76.8 Other specified abnormal immunological findings in serum F31.9 Bipolar disorder, unspecified Office Visit 06/18/2018 9:30a Rheumatology Zsofia F31.9 Bipolar disorder, [facility] Stew, STEEL CHECKER unspecified F41.9 Anxiety disorder, unspecified R76.8 Other specified abnormal immunological findings in serum G89.4 Chronic pain syndrome G62.9 Polyneuropathy, unspecified F17.210 Nicotine dependence, cigarettes, uncomplicated Office Visit 04/22/2018 9:20a Rheumatology Services Vikram Pandey M54.5 Low back Of Emergency Worker M.D. 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 skin M54.5 Low back pain M54.6 Pain in thoracic spine R70.0 Elevated erythrocyte sedimentation rate G62.9 Polyneuropathy, unspecified Office Visit 10/12/2017 [place] Miguel Peralta, R20.2 Paresthesia of 10:15a Neurologic MAdelina skin [facility] M54.5 Low back pain Office Visit 09/11/2017 [place] Miguel Peralta, R20.2 Paresthesia of 10:30a Neurologic MAdelina skin [facility] M54.5 Low back pain Office Visit 01/08/2016 2:00p [place] Neurologic Tessa Kaba, R20.2 Paresthesia of [facility] skin M54.5 Low back pain Office Visit 11/30/2015 Neurohospitalist Tessa Kaba, 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 794.31 Electrocardiogram Visit 9:00a Cardiology Obdulia Cody (ECG) (EKG) Abnormal 786.50 Pain Chest Unspec 719.7 Difficulty Walking Plan of Treatment Future Appointment(s):01/11/2019 3:00 pm - MIGUELANGEL Rajput at Rheumatology [facility]04/25/2019 8:40 am - Vikram Pandey M.D. at Rheumatology [facility]11/30/2018 - Baldomero Mathias FNPG89.4 Chronic pain syndromeComments:Please check with Dr. Nunes if you may take Tylenol or ibuprofen 1-2 tabs daily as those have helped with your pain We discussed today that chronic pain syndrome and/or fibromyalgia causes pain and increased sensitivity to touch at various parts of the body. It is often associated with chronic fatigue, sleep problems and depression. Research showed that the most effective treatment for fibromyalgiais physical exercise and should be used in addition to medical treatment. Aerobic exercises providethe most benefit but other body-based therapies including Deny Chi and yoga can ease fibromyalgia symptomsFollow up:Late .9 Bipolar disorder, unspecifiedComments: Please f/u with Dr. Washington and let her know about your pain syndromeI will also call her to see if she may be able to recommend treatment.
== END | disposition home or self-care (01) ==
LOC: ED 12:23
DX: R10.9 Unspecified abdominal pain (principal); Z53.21 Procedure and treatment not carried out due to patient leaving prior to being seen by health care provider
CPT/HCPCS: 99282

== ENCOUNTER 2019-12-14 10:10 | Emergency (ER) | payer MEDICARE, MEDICAID ==
--- NOTE | 2019-12-14 11:05 | ED ---
Lower Extremity - HPI Summary HPI Summary: 49 year old M arriving via private car complains of left foot pain and left ankle pain after getting the back of her left ankle bent around a linen cart while at work on Thursday12/10/2019. Patient states she is able to ambulate and bear weight. Patient states she has a lot of anxiety. She took her anxiety medications prior to arrival and is feeling better. Symptoms rated 6/10 in severity. Symptoms aggravated by nothing. Symptoms alleviated by nothing. Medications reviewed. Allergies reviewed. - History of Current Complaint Chief Complaint: EDGeneral Stated Complaint: LEFT FOOT INJURY Hx Obtained From: Patient Mechanism Of Injury: Other - getting the back of her left ankle bent around a linen cart while at work Onset of Pain: Days - 4 Onset/Duration: Still Present Severity Currently: Moderate Pain Intensity: 6 Pain Scale Used: 0-10 Numeric Location: Is Discrete @ - left ankle, left foot Associated Signs And Symptoms: Positive: Other - anxiety Aggravating Factor(s): Nothing Alleviating Factor(s): Nothing - Allergies/Home Medications Allergies/Adverse Reactions: Allergies Allergy/AdvReac Type Severity Reaction Status Date / Time No Known Allergies Allergy Verified 12/14/19 10:18 PMH/Surg Hx/FS Hx/Imm Hx Endocrine/Hematology History: Reports: Hx Thyroid Disease - take synthroid - follows w/ PCP Denies: Hx Anticoagulant Therapy, Hx Blood Disorders, Hx Diabetes, Hx Unexplained Bleeding Cardiovascular History: Reports: Hx Hypercholesterolemia - untreated - pending cardiology appt, Hx Hypertension - on amlodipine only, Other Cardiovascular Problems/Disorders - murmur Denies: Hx Aneurysm, Hx Myocardial Infarction, Hx Pacemaker/ICD Respiratory History: Reports: Hx Pulmonary Embolism - no residual issues Denies: Hx Asthma, Hx Chronic Obstructive Pulmonary Disease (COPD), Other Respiratory Problems/Disorders GI History: Denies: Hx Ulcer, Other GI Disorders History: Reports: Hx Renal Disease - Kidney disease 2ndry to lithium - follows w/ [facility], Other Problems/Disorders - Kidney disease - follows w/ [facility] Musculoskeletal History: Reports: Hx Fibromyalgia - follows w/ rheum Sensory History: Denies: Hx Contacts or Glasses, Hx Hearing Aid Opthamlomology History: Denies: Hx Contacts or Glasses Neurological History: Reports: Hx Peripheral Neuropathy - feet - worse since reducing gabapentin Denies: Other Neuro Impairments/Disorders Psychiatric History: Reports: Hx Anxiety - ON MEDS, Hx Depression - ON MEDS, Hx Bipolar Disorder Denies: Hx Panic Disorder - Surgical History Surgery Procedure, Year, and Place: 10/2013, [facility]. RIGHT FOOT BONE BY BIG TOE 2014 Hx Anesthesia Reactions: No Infectious Disease History: No Infectious Disease History: Denies: Hx Hepatitis, Hx Human Immunodeficiency Virus (HIV), Traveled Outside the [place] in Last 30 Days - Family History Known Family History: Negative: Cardiac Disease, Diabetes - Social History Alcohol Use: None Hx Substance Use: Yes Substance Use Type: Reports: Excessive Caffeine - 4-5+ cups coffee per day Hx Tobacco Use: Yes Smoking Status (MU): Current Every Day Smoker Type: Cigarettes Amount Used/How Often: 1/2 PPD Have You Smoked in the Last Year: Yes Review of Systems Positive: Other - left foot pain, left ankle pain Positive: Anxious All Other Systems Reviewed And Are Negative: Yes Physical Exam - Summary Physical Exam Summary: VITAL SIGNS: Reviewed. GENERAL: Patient is a well-developed and nourished FEMALE who is lying comfortable in the stretcher. Patient is not in any acute respiratory distress. HEAD AND FACE: No signs of trauma. No ecchymosis, hematomas or skull depressions. No sinus tenderness. EYES: PERRLA, EOMI x 2, No injected conjunctiva, no nystagmus. EARS: Hearing grossly intact. Ear canals and tympanic membranes are within normal limits. MOUTH: Oropharynx within normal limits. NECK: Supple, trachea is midline, no adenopathy, no JVD, no carotid bruit, no c- spine tenderness, neck with full ROM. CHEST: Symmetric, no tenderness at palpation. LUNGS: Clear to auscultation bilaterally. No wheezing or crackles. CVS: Regular rate and rhythm, S1 and S2 present, no murmurs or gallops appreciated. ABDOMEN: Soft, non-tender. No signs of distention. No rebound, no guarding, and no masses palpated. Bowel sounds are normal. EXTREMITIES: There is tenderness in the back of the left ankle. There is no swelling, no hematoma, no deformity. There is good pulses and capillary refill. NEURO: Alert and oriented x 3. No acute neurological deficits. Speech is normal and follows commands. SKIN: Dry and warm. Triage Information Reviewed: Yes Vital Signs On Initial Exam: Initial Vitals Temp Pulse Resp BP Pulse Ox 98.9 F 83 20 136/88 96 12/14/19 10:13 12/14/19 10:13 12/14/19 10:13 12/14/19 10:13 12/14/19 10:13 Vital Signs Reviewed: Yes Procedures - Sedation Patient Received Moderate/Deep Sedation with Procedure: No Diagnostics - Vital Signs Vital Signs Temp Pulse Resp BP Pulse Ox 12/14/19 10:13 98.9 F 83 20 136/88 96 - Laboratory Lab Statement: Any lab studies that have been ordered have been reviewed, and results considered in the medical decision making process. - Radiology Left ankle x-ray Radiology Interpretation Completed By: Radiologist Summary of Radiographic Findings: NO ACUTE OSSEOUS INJURY. IF SYMPTOMS PERSIST, RECOMMEND REPEAT IMAGING. ED physician has reviewed this report. Left foot x-ray Radiology Interpretation Completed By: Radiologist Summary of Radiographic Findings: NO ACUTE OSSEOUS INJURY. IF SYMPTOMS PERSIST, RECOMMEND REPEAT IMAGING. ED physician has reviewed this report. Lower Extremity Course/Dx - Course Assessment/Plan: 49 year old M arriving via private car complains of left foot pain and left ankle pain after getting the back of her left ankle bent around a linen cart while at work on Thursday12/10/2019. Patient states she is able to ambulate and bear weight. Patient states she has a lot of anxiety. She took her anxiety medications prior to arrival and is feeling better. Symptoms rated 6/10 in severity. Symptoms aggravated by nothing. Symptoms alleviated by nothing. Medications reviewed. Allergies reviewed. X-Rays ankle and foot impression: Negative for fracture dislocation. The patient is ambulating with no significant pain therefore she will be discharged home with follow-up with PCP. The patient is hemodynamically stable alert and oriented 3. - Diagnoses Provider Diagnoses: Ankle pain Discharge ED - Sign-Out/Discharge Documenting (check all that apply): Patient Departure - Discharge Plan Condition: Stable Disposition: HOME Referrals: Chris Jarrett MD [Primary Care Provider] - 3 Days Additional Instructions: Follow up with your primary care provider in 3 days. Return to the Emergency Department for new or worsening symptoms. - Billing Disposition and Condition Condition: STABLE Disposition: Home - Attestation Statements Document Initiated by Scribe: Yes Documenting Scribe: Ree Esteban Provider For Whom Scribe is Documenting (Include Credential): Ervin Lopez MD Scribe Attestation: Ree Paul scribed for Ervin Lopez MD on 12/14/19 at 1848. Scribe Documentation Reviewed: Yes Provider Attestation: The documentation as recorded by the scribe, Ree Esteban accurately reflects the service I personally performed and the decisions made by me, Ervin Lopez MD Status of Scribe Document: Viewed
[2019-12-14 12:39] VITALS: BP 113/74
== END 2019-12-14 12:37 | disposition home or self-care (01) ==
LOC: ED 10:10
DX: M25.572 Pain in left ankle and joints of left foot (principal); X50.9XXA Other and unspecified overexertion or strenuous movements or postures, initial encounter; Y92.89 Other specified places as the place of occurrence of the external cause; Y99.0 Civilian activity done for income or pay; E03.9 Hypothyroidism, unspecified; E78.00 Pure hypercholesterolemia, unspecified; I10 Essential (primary) hypertension; F41.9 Anxiety disorder, unspecified; F32.9 Major depressive disorder, single episode, unspecified; F17.210 Nicotine dependence, cigarettes, uncomplicated; Z86.711 Personal history of pulmonary embolism; Z79.890 Hormone replacement therapy; Z79.899 Other long term (current) drug therapy
CPT/HCPCS: 99281